=== PATIENT | female | born 1980 | race Asian ===

== ENCOUNTER 2018-10-16 19:53 | Emergency (ER) | payer MEDICAID ==
[~2018-10-16] VITALS: Ht 162.6 cm; Wt 54.4 kg
--- NOTE | 2018-10-16 19:40 | NUR ---
ED Nurse Note: Denita [id number], pt is etoh intoxication. pt bs was originally 44, d10 was given IV. then went up to 90. Pt is currently unable to carry on conversation and is verbally abussive.
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
[2018-10-16 19:54] VITALS: BP 114/80
[2018-10-16] MEDS ORDERED: LORazepam Inj 2mg/ml 1ml ONE (19:59)
[2018-10-16] MEDS ORDERED: Haloperidol 5mg/ml Inj ONE (19:59)
[2018-10-16] MEDS ORDERED: DiphenhydrAMINE 50mg/ml Inj ONE (19:59)
[2018-10-16] MEDS ORDERED: LR 1000ml 1,000 ML IV ONE (20:00)
[2018-10-16] MEDS ORDERED: LORazepam Inj 2mg/ml 1ml IM ONE (20:00)
[2018-10-16] MEDS ORDERED: Haloperidol 5mg/ml Inj IM ONE ×2 (20:00→23:45)
[2018-10-16] MEDS ORDERED: DiphenhydrAMINE 50mg/ml Inj IM ONE (20:00)
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
[2018-10-16 20:32] LABS: EOSINOPHILS % (AUTO) 0.6 % (0.0-3.0); HEMATOCRIT 37.3 % (37.0-47.0); HEMOGLOBIN 13.8 G/DL (12.0-16.0); MEAN CORPUSCULAR VOLUME 92 FL (80-99); NEUTROPHILS % (AUTO) 55.5 % (45.0-75.0); PLATELET COUNT 275 K/UL (150-450); RED BLOOD COUNT 4.07 M/UL (4.20-5.40); RED CELL DISTRIBUTION WIDTH 10.3 % (11.6-14.8); WHITE BLOOD COUNT 10.5 K/UL (4.8-10.8)
[2018-10-16 20:39] LABS: ANION GAP 18 mmol/L (5-15); BLOOD UREA NITROGEN 7 mg/dL (7-18); CALCIUM 8.3 MG/DL (8.5-10.1); CARBON DIOXIDE 20 MMOL/L (21-32); CHLORIDE 107 MMOL/L (98-107); CREATININE 0.6 MG/DL (0.55-1.30); POTASSIUM 3.6 MMOL/L (3.5-5.1); SODIUM 144 MMOL/L (136-145)
[2018-10-16 20:45] LABS: ALANINE AMINOTRANSFERASE 18 U/L (12-78); ALBUMIN 4.3 G/DL (3.4-5.0); ALBUMIN/GLOBULIN RATIO 1.2 (1.0-2.7); ALKALINE PHOSPHATASE 34 U/L (46-116); ASPARTATE AMINO TRANSFERASE 25 U/L (15-37); BILIRUBIN,TOTAL 0.3 MG/DL (0.2-1.0)
--- NOTE | 2018-10-16 21:39 | NUR ---
ED Nurse Note: Pt is currently in bed with eyes closed. VSS
--- NOTE | 2018-10-16 21:55 | Emergency Room Report ---
Physical Exam Vital Signs Date Time Temp Pulse Resp B/P (MAP) Pulse Ox O2 Delivery O2 Flow Rate FiO2 10/16/18 19:34 99.0 92 18 114/80 (91) 99 Room Air Medical Decision Making Diagnostic Impression: Primary Impression: Acute alcoholic intoxication Qualified Codes: F10.920 - Alcohol use, unspecified with intoxication, uncomplicated Additional Impression: Combative behavior ER Course Briefly, this is a 37-year-old female presenting for acute alcohol intoxication. Alcohol level greater than 400. The patient is not yet ready for discharge and was signed out to me at 2150. She will be allowed to metabolize in the emergency department. Discharge when clinically sober. Laboratory Tests Test 10/16/18 20:05 10/16/18 20:15 10/16/18 20:38 White Blood Count 10.5 K/UL (4.8-10.8) Red Blood Count 4.07 M/UL (4.20-5.40) L Hemoglobin 13.8 G/DL (12.0-16.0) Hematocrit 37.3 % (37.0-47.0) Mean Corpuscular Volume 92 FL (80-99) Mean Corpuscular Hemoglobin 33.9 PG (27.0-31.0) H Mean Corpuscular Hemoglobin Concent 37.1 G/DL (32.0-36.0) H Red Cell Distribution Width 10.3 % (11.6-14.8) L Platelet Count 275 K/UL (150-450) Mean Platelet Volume 5.6 FL (6.5-10.1) L Neutrophils (%) (Auto) 55.5 % (45.0-75.0) Lymphocytes (%) (Auto) 39.0 % (20.0-45.0) Monocytes (%) (Auto) 4.0 % (1.0-10.0) Eosinophils (%) (Auto) 0.6 % (0.0-3.0) Basophils (%) (Auto) 1.0 % (0.0-2.0) Sodium Level 144 MMOL/L (136-145) Potassium Level 3.6 MMOL/L (3.5-5.1) Chloride Level 107 MMOL/L (98-107) Carbon Dioxide Level 20 MMOL/L (21-32) L Anion Gap 18 mmol/L (5-15) H Blood Urea Nitrogen 7 mg/dL (7-18) Creatinine 0.6 MG/DL (0.55-1.30) Estimate Glomerular Filtration Rate > 60 mL/min (>60) Glucose Level 201 MG/DL (74-106) H Calcium Level 8.3 MG/DL (8.5-10.1) L Total Bilirubin 0.3 MG/DL (0.2-1.0) Aspartate Amino Transferase (AST) 25 U/L (15-37) Alanine Aminotransferase (ALT) 18 U/L (12-78) Alkaline Phosphatase 34 U/L (46-116) L Total Protein 7.8 G/DL (6.4-8.2) Albumin 4.3 G/DL (3.4-5.0) Globulin 3.5 g/dL Albumin/Globulin Ratio 1.2 (1.0-2.7) Human Chorionic Gonadotropin, Qual Negative (NEGATIVE) Salicylates Level 1.0 ug/mL (2.8-20) L Acetaminophen Level < 2 MCG/ML (10-30) L Serum Alcohol 407 mg/dL Urine HCG, Qualitative Negative (NEGATIVE) Urine Opiates Screen Negative (NEGATIVE) Urine Barbiturates Screen Negative (NEGATIVE) Phencyclidine (PCP) Screen Negative (NEGATIVE) Urine Amphetamines Screen Negative (NEGATIVE) Urine Benzodiazepines Screen Negative (NEGATIVE) Urine Cocaine Screen Negative (NEGATIVE) Urine Marijuana (THC) Screen Negative (NEGATIVE) Reevaluation Time: 04:45 Last Vital Signs Date Time Temp Pulse Resp B/P (MAP) Pulse Ox O2 Delivery O2 Flow Rate FiO2 10/16/18 19:54 99.0 85 18 114/80 99 Room Air Status: improved Reevaluation Impression Patient was monitored in the emergency department for a total of 9 hours. She is significantly improved from initial presentation is now safe for discharge home. Her mother is coming to take her home Disposition: HOME, SELF-CARE Condition: Stable Referrals: [facility] Patient Instructions: Alcohol Intoxication, [id number] Additional Instructions: The patient was provided with discharge instructions, notified to follow-up with a primary care doctor and or specialist in the next 24-48 hours, and to return to the ED if they have worsening of their symptoms. Please note that this report is being documented using [employer] technology. This can lead to erroneous entry secondary to incorrect interpretation by the dictating instrument. Juan Alaniz MD Oct 16, 2018 21:55
[2018-10-16] MEDS ORDERED: LR 1000ml 1,000 ML IV SCH (22:00)
[2018-10-16 22:02] VITALS: BP 120/75
--- NOTE | 2018-10-16 23:28 | NUR ---
ED Nurse Note: pt is verbally abussive toward staff. attempting to pull out IV lines and removing Monitor lines. unable to redirect.
--- NOTE | 2018-10-16 23:40 | NUR ---
ED Nurse Note: IM Haldol given. pt is i bed calm. eyes closed. VSS
[2018-10-17 00:02] VITALS: BP 114/70
--- NOTE | 2018-10-17 01:14 | NUR ---
ED Nurse Note: pt in bed with eyes closed but constantly moving around. HR 118. BP 118/72, Sp02 100%.
[2018-10-17 01:45] VITALS: BP 110/72
--- NOTE | 2018-10-17 03:16 | NUR ---
ED Nurse Note: pt in bed with eyes closed. no acute distress is noted,.
[2018-10-17 03:28] VITALS: BP 115/82
--- NOTE | 2018-10-17 04:36 | NUR ---
ED Nurse Note: pt woke up, assisted pt with ambulation to restroom. Pt voided.
--- NOTE | 2018-10-17 04:40 | NUR ---
Zoe Bette([phone]) is on her way to pick her up.
--- NOTE | 2018-10-17 04:58 | NUR ---
ER DISCHARGE NOTE: Patient is cleared to be discharged per ERMD, pt is aox4, on room air, with stable vital signs. pt was given dc instructions, pt was able to verbalize understanding, pt id band and iv site removed without complications. pt is able to ambulate with steady gait. pt took all belongings.
[2018-10-17 04:59] VITALS: BP 120/82
== END 2018-10-17 04:58 | disposition home or self-care (01) ==
LOC: EDBD 19:53 → EMR 22:00
DX: F10.920 Alcohol use, unspecified with intoxication, uncomplicated (principal); E16.2 Hypoglycemia, unspecified; Y90.8 Blood alcohol level of 240 mg/100 ml or more
CPT/HCPCS: 36415; 80053; 80307; 80329; 81025; 82962; 84703; 85025; 96361; 96365; 96372; 99291; J1200; J1630